=== PATIENT | male | born 1955 | race Caucasian/White ===

== ENCOUNTER 2016-07-02 15:40 | Emergency (ER) | payer BC ==
[~2016-07-02] VITALS: Ht 195.6 cm; Wt 71.2 kg
--- NOTE | 2016-07-02 15:40 | NUR ---
PT SENT FROM CLINIC FOR LOW O2 = 92% ON RA, PATIENT STATES THAT HE HAS FLU like symptoms for a week. PLACED ON MONITOR. VSS. AWAITING MD ORDER
[2016-07-02] MEDS ORDERED: ALBUTEROL FS 2.5 MG/3 ML VIAL.NEB CONTNEB ONE ×2 (16:30→18:00)
[2016-07-02] MEDS ORDERED: methylPREDNISolone SOD SUCC 125 MG/2ML VIAL IV ONE (16:30)
[2016-07-02] MEDS ORDERED: IPRATROPIUM NEB FS 0.5 MG/2.5 ML AMPUL.NEB NEB ONE (16:30)
[2016-07-02] MEDS ORDERED: methylPREDNISolone SOD SUCC 125 MG/2ML VIAL ONE (16:47)
--- NOTE | 2016-07-02 16:49 | NUR ---
LAC #18 IV ACCESS. BLOOD SAMPLE COLLECTED SENT TO LAB
[2016-07-02 16:54] LABS: BASOPHILS # (AUTO) 0.2 /CMM (0.0-0.2); BASOPHILS % (AUTO) 2.1 % (0.0-2.0); EOSINOPHILS # (AUTO) 0.5 /CMM (0.0-0.7); EOSINOPHILS % (AUTO) 4.2 % (0.0-6.0); HEMATOCRIT 42 % (39-51); HEMOGLOBIN 13.8 g/dL (13.5-17.5); LYMPHOCYTES # (AUTO) 1.5 /CMM (0.8-4.8); MEAN CORPUSCULAR HEMOGLOBIN 29 PG (26.0-33.0); MEAN CORPUSCULAR HGB CONC 33 g/dl (31.0-36.0); MEAN CORPUSCULAR VOLUME 88 fL (80-96); MONOCYTES # (AUTO) 0.7 /CMM (0.1-1.30); NEUTROPHILS # (AUTO) 8.1 /CMM (1.8-8.9); NEUTROPHILS % (AUTO) 73.7 % (43.0-81.0); PLATELET COUNT (AUTO) 322 /CMM (150-450); RDW COEFFICIENT OF VARIATION 12.8 (11.5-15.0); RED BLOOD CELL COUNT(AUTO) 4.79 MIL/uL (4.5-6.0)
[2016-07-02] MEDS ORDERED: IPRATROPIUM NEB FS 0.5 MG/2.5 ML AMPUL.NEB ONE (16:56)
[2016-07-02] MEDS ORDERED: ALBUTEROL FS 2.5 MG/3 ML VIAL.NEB ONE ×2 (16:56→18:03)
[2016-07-02 17:05] LABS: CARBON DIOXIDE 25 mmol/L (21-32); CHLORIDE 106 mmol/L (98-107); CREATININE 0.9 mg/dL (0.6-1.3); GFR 87 mL/min (>60); GLUCOSE 96 mg/dL (74-106); POTASSIUM 4.1 mmol/L (3.5-5.1); SODIUM SERUM 140 mmol/L (136-145); UREA NITROGEN, BLOOD 19 mg/dL (7-18)
[2016-07-02 17:06] LABS: CALCIUM, SERUM 8.5 mg/dL (8.5-10.1)
[2016-07-02 17:13] LABS: TROPONIN I < 0.017 ng/mL (0.00-0.056)
[2016-07-02 17:20] LABS: B-TYPE NATRIURETIC PEPTIDE 19 PG/ML (0-125)
[2016-07-02] MEDS ORDERED: LEVOFLOXACIN (750 MG) 750 MG TABLET PO STA (17:52)
[2016-07-02] MEDS ORDERED: LEVOFLOXACIN (750 MG) 750 MG TABLET ONE (17:52)
--- NOTE | 2016-07-02 17:58 | NUR ---
CALLED RT FOR BREATHING TX
--- NOTE | 2016-07-02 19:11 | NUR ---
DUONEB CONT GIVEN BY RT. NOT MARKED.
--- NOTE | 2016-07-02 19:11 | NUR ---
REPORT GIVEN TO TIA FOR SAVANNA
--- NOTE | 2016-07-02 19:48 | NUR ---
IV removed. Catheter intact and site benign. Pressure and 4x4 applied to site. No bleeding noted. Patient discharged to home in stable condition. Written and verbal after care instructions given. Patient verbalizes understanding of instruction. Patient is ambulatoy with steady gait, no further complaints.
[2016-07-02 19:49] VITALS: BP 120/68
== END 2016-07-02 19:50 | disposition home or self-care (01) ==
LOC: ER 15:42
DX: J45.901 Unspecified asthma with (acute) exacerbation (principal); J18.9 Pneumonia, unspecified organism
CPT/HCPCS: 36415; 71010; 80048; 83880; 84484; 85025; 93005; 94640 ×3; 96374; 99285; A4606; J2930; Z7610